=== PATIENT | male | born 1960 | race Caucasian/White ===

== ENCOUNTER 2020-02-22 04:49 | Day surgery (SDC) | payer OTHER ==
[2020-02-22 12:00] VITALS: BMI 29.2
[2020-02-22 12:36] VITALS: TEMP 97.9
[2020-02-22 13:25] VITALS: BP 123/79; PULSE 61
--- NOTE | 2020-02-24 16:24 | PATH ---
Surgical Pathology Report Patient Name: DARWIN ANTUNEZ [facility]. Rec. #: [id number] /Age/Gender: 1960 (Age: 59) / M Account: [id number] Location: U-ENDOSCOPY Taken: 02/22/2020 Received: 02/22/2020 Reported: 02/24/2020 Physicians: Ramo Blackmon D.O. Specimen(s) Received A: ANTRUM AND BODY OF STOMACH B: BIOPSY OF POLYP C: GE JUNCTION Clinical History GERD Final Diagnosis A. STOMACH, ANTRUM AND BODY, BIOPSY: GASTRIC ANTRAL AND BODY MUCOSA WITH MILD CHRONIC GASTRITIS. IMMUNOHISTOCHEMICAL STAIN FOR H. PYLORI IS NEGATIVE. B. GASTRIC BODY, POLYP, BIOPSY: FUNDIC GLAND POLYP. IMMUNOHISTOCHEMICAL STAIN FOR H. PYLORI IS NEGATIVE. C. GE JUNCTION, BIOPSY: GASTRIC CARDIAC TYPE MUCOSA WITH MILD CHRONIC GASTRITIS. NO SQUAMOUS MUCOSA, INTESTINAL METAPLASIA, OR DYSPLASIA IDENTIFIED IMMUNOHISTOCHEMICAL STAIN FOR H. PYLORI IS NEGATIVE. Positive and negative controls (internal if applicable) show appropriate results. Electronically Signed Flakita Mcgill M.D. Gross Description A. Received in formalin, labeled "biopsy antrum and body of stomach" are 4 gongora, irregular portions of soft tissue ranging from 0.1-0.3 cm. in greatest dimension. The specimens are submitted in toto in one cassette. B. Received in formalin, labeled "biopsy of polyp" is a gongora, irregular portion of soft tissue measuring 0.4 cm. in greatest dimension. The specimen is submitted in toto in one cassette. C. Received in formalin, labeled "biopsy GE junction" is a gongora, irregular portion of soft tissue measuring 0.4 cm. in greatest dimension. The specimen is submitted in toto in one cassette. DL/02/22/2020 saudi/02/22/2020
== END 2020-02-22 13:29 | disposition home or self-care (01) ==
LOC: JASU-ENDO 04:49
PROVIDERS: ATTEND Internal Medicine Gastroenterology
PROC: 0DB68ZX Excision of Stomach, Via Natural or Artificial Opening Endoscopic, Diagnostic (ICD-10-PCS; 2020-02-22)
PROC: 0DB58ZX Excision of Esophagus, Via Natural or Artificial Opening Endoscopic, Diagnostic (ICD-10-PCS; principal; 2020-02-22 10:00)
DX: K21.9 Gastro-esophageal reflux disease without esophagitis (principal); K29.50 Unspecified chronic gastritis without bleeding; K31.7 Polyp of stomach and duodenum; K21.0 Gastro-esophageal reflux disease with esophagitis; K44.9 Diaphragmatic hernia without obstruction or gangrene; I10 Essential (primary) hypertension; E78.5 Hyperlipidemia, unspecified; E11.9 Type 2 diabetes mellitus without complications; Z79.84 Long term (current) use of oral hypoglycemic drugs
CPT/HCPCS: 88305-TC; 88342-TC

== ENCOUNTER 2020-02-29 05:21 | Day surgery (SDC) | payer OTHER ==
[2020-02-23 11:16] VITALS: BMI 29.2
[2020-02-29 11:26] VITALS: TEMP 97.6
[2020-02-29 11:49] VITALS: PULSE 58
[2020-02-29 12:08] VITALS: BP 103/53
--- NOTE | 2020-03-01 16:51 | PATH ---
Surgical Pathology Report Patient Name: DARWIN ANTUNEZ [facility]. Rec. #: [id number] /Age/Gender: 1960 (Age: 59) / M Account: [id number] Location: [facility]-ENDOSCOPY Taken: 02/29/2020 Received: 02/29/2020 Reported: 03/01/2020 Physicians: Ramo Blackmon D.O. Specimen(s) Received SIGMOID POLYP Clinical History Colon cancer screening Postoperative diagnosis: Hemorrhoids, colon polyp Final Diagnosis SIGMOID POLYP, BIOPSY: POLYPOID COLONIC MUCOSA WITH SMALL LYMPHOID AGGREGATE. Electronically Signed Flakita Mcgill M.D. Gross Description Received in formalin, labeled "biopsy sigmoid polyp" is a gongora, irregular portion of soft tissue measuring 0.1 cm. in greatest dimension. The specimen is submitted in toto in one cassette. /02/29/2020 [facility]02/29/2020
== END 2020-02-29 12:11 | disposition home or self-care (01) ==
LOC: JASU-ENDO 05:21 → MERGE 11:00 → JASU-ENDO 12:11
PROVIDERS: ATTEND Internal Medicine Gastroenterology
PROC: 0DBN8ZX Excision of Sigmoid Colon, Via Natural or Artificial Opening Endoscopic, Diagnostic (ICD-10-PCS; principal; 2020-02-29 11:00)
DX: Z12.11 Encounter for screening for malignant neoplasm of colon (principal); D12.5 Benign neoplasm of sigmoid colon; I10 Essential (primary) hypertension; E78.5 Hyperlipidemia, unspecified; E11.9 Type 2 diabetes mellitus without complications; K64.8 Other hemorrhoids
CPT/HCPCS: 88305-TC